=== PATIENT | male | born 1970 | race Caucasian/White ===

== ENCOUNTER 2017-08-13 10:48 | Emergency (ER) | payer SELFPAY ==
--- NOTE | 2017-08-13 11:26 | EDM.PDOC ---
ED HPI GENERAL MEDICAL PROBLEM - General Chief Complaint: Skin Complaint Stated Complaint: RASH Time Seen by Provider: 08/13/17 11:26 Source of Information: Reports: Patient History Limitations: Reports: No Limitations - History of Present Illness INITIAL COMMENTS - FREE TEXT/NARRATIVE: Jose is a 47yo male, here with 2+ week complaint of skin rash initially starting on his right knee while wearing a knee brace for knee strain. He has hx of psoriasis to bilateral ankles, has had to take prednisone for this in the past. Over the past 2 days rash has now spread to bilateral legs, trunk and arms. It is red, raised and itchy. He has tried benadryl without relief. No f/c/ s, no n/v/d. No abd pain. He states he is otherwise healthy, no chronic rx meds and NKDA. He denies latex allergy or other contact allergens that he is aware of. He is from [place], working in [employer] since March in the [employer] industry. No PCP locally. Onset: Gradual Duration: Day(s): Location: Reports: Lower Extremity, Right, Other (now generalized to trunk and all 4 extremities) Quality: Reports: Other (itchy and wu) Improves with: Reports: None Worsens with: Reports: Heat Therapy Associated Symptoms: Reports: Rash. 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 [No Known Home Meds] 08/13/17 [History] Past Medical History Dermatologic History: Reports: Psoriasis Social & Family History - Tobacco Use Smoking Status *Q: Never Smoker - Caffeine Use Caffeine Use: Reports: Tea - Recreational Drug Use Recreational Drug Use: No ED ROS GENERAL - Review of Systems Review Of Systems: See Below Constitutional: Reports: No Symptoms HEENT: Reports: No Symptoms Respiratory: Reports: No Symptoms GI/Abdominal: Reports: No Symptoms Musculoskeletal: Reports: Joint Pain (right knee pain x 2-3 weeks after stepping out of a pickup wrong. Went to [facility], with normal xray and has been wearing a knee sleeve type brace against his skin since that time.) Skin: Reports: Rash ED EXAM, SKIN/RASH Exam: See Below Exam Limited By: No Limitations General Appearance: Alert, WD/WN, No Apparent Distress Eye Exam: Bilateral Eye: EOMI, PERRL Ears: Hearing Grossly Normal Nose: Normal Inspection Throat/Mouth: Normal Inspection, Normal Lips, Normal Voice, No Airway Compromise Head: Atraumatic, Normocephalic Neck: Normal Inspection, Supple Respiratory/Chest: No Respiratory Distress, Lungs Clear, No Accessory Muscle Use Cardiovascular: Normal Peripheral Pulses, Regular Rate, Rhythm, No Edema, No Murmur Peripheral Pulses: 2+: Posterior Tibial (L), Posterior Tibial (R), Dorsalis Pedis (L), Dorsalis Pedis (R) GI/Abdominal: Normal Bowel Sounds, Soft Neurological: Alert, Oriented, CN II-XII Intact Psychiatric: Normal Affect, Normal Mood, Other (pleasant) Skin: Warm Location, Skin: Lower Extremity, Right (right knee: circumfrencially is with top layer of skin sloughed off and with minimal clear weeping. no evidence of infection. This area of slough is approximately 3cm above and below patella and circumfrencially. Remaining leg, left leg, arms from hands to axilla and trunkal are with small raised areas of erythema, rough to touch) Characteristics: Patchy, Urticarial, Erythematous Course - Vital Signs Last Recorded V/S: Last Vital Signs Temp 97.4 F 08/13/17 11:00 Pulse 104 H 08/13/17 11:00 Resp 18 08/13/17 11:00 BP 144/91 H 08/13/17 11:00 Pulse Ox 98 08/13/17 11:00 - Re-Assessments/Exams Free Text/Narrative Re-Assessment/Exam: 08/13/17 12:02 Reviewed with patient that I will treat right knee like a burn as skin is sloughed off however this is a form of contact dermatitis, likely flared due to his underlying psoriasis condition. I will treat with IM solumedrol, PO pepcid and antihistamines. Rx will be given for prednisone, zyrtec and pepcid. he is to follow up with primary care if not improved by 5 days. Departure - Departure Time of Disposition: 12:04 Disposition: Home, Self-Care 01 Condition: Good Clinical Impression: Contact dermatitis Qualifiers: Contact dermatitis type: irritant Contact dermatitis trigger: other trigger Qualified Code(s): L24.89 - Irritant contact dermatitis due to other agents; L24.8 - Irritant contact dermatitis due to other agents - Discharge Information Instructions: Rash, Contact Dermatitis Referrals: PCP,None [Primary Care Provider] - Forms: ED Department Discharge Additional Instructions: You were given injection of solumedrol which is like prednisone for this reaction- this is like a burn but is triggered by allergy/contact reaction to the knee brace, flared by/accompanied by psoriasis condition. You will be given prescription for prednisone taper, pepcid to take twice daily , zyrtec to take once daily all for this reaction. Silvadene cream can be applied to the knee skin twice daily until healed. Keep covered with loose gauze dressing. Can shower as usual. Be sure to wear clothing between knee brace if you chose to use this once skin is healed. Follow up with Primary Care within 5 days if not improving/resolved. DAKOTA Mccurdy PA-C Or any other providers with [facility] in [place]; call [phone] to schedule appointment
[2017-08-13] MEDS ORDERED: methylPREDNISolone Sodium Succinate 40 MG/1 ML SDV IM ONE (12:05)
[2017-08-13] MEDS ORDERED: Loratadine 10 MG Tab PO ONE (12:05)
[2017-08-13] MEDS ORDERED: Famotidine 20 MG Tab PO ONE (12:05)
[2017-08-13] MEDS ORDERED: Silver Sulfadiazine 1% Crm 50 GM Tube TOP ONE (12:09)
== END 2017-08-13 12:35 | disposition home or self-care (01) ==
LOC: JD.ED 10:48
DX: L24.89 Irritant contact dermatitis due to other agents (principal)
CPT/HCPCS: 96372; 99283; A9270; J2920